=== PATIENT | male | born 2005 | race Caucasian/White ===

== ENCOUNTER 2024-09-10 10:57 | Emergency (ER) | payer BC, SELFPAY ==
[2024-09-10 11:17] VITALS: BP 131/77
--- NOTE | 2024-09-10 11:21 | ED.GENMED ---
ED Provider Triage
-
Patient seen by provider in Triage?: Seen in Triage
Attestation: A medical screening examination has been initiated by a qualified medical provider. Based on the assessment performed at this time, it has been determined that an emergent medical condition may exist and the patient has been informed
that further medical evaluation and possible additional diagnostic testing may be needed.
HPI: This is a medical evaluation conducted in person to initiate diagnostic evaluation and provide initial therapeutics. Please see further documentation by the treating clinician. 19yoM here after a head injury. Got out of bed too quickly
yesterday and passed out. Hit his head. C/o nausea, dizziness, headache. Headache is currently a 4/10 in severity. Wants to get checked for a concussion. Does not feel he needs to be here but parents wanted him to get checked.
GENERAL: Alert , in no apparent distress
EYE: No visual abnormalities.
NECK: Trachea midline
ENT: No visible abnormalities.
LUNGS: No acute respiratory distress
NEUROLOGICAL: Alert and oriented. PERRL. Ambulating with a steady gait.
SKIN: Skin intact. No visible changes.
MUSCULOSKELETAL: Moving extremities normally
PSYCH: Normal and appropriate interaction.
EKG ordered. Patient does not want blood work and does not feel he needs a CT.
History of Present Illness
General
Chief Complaint: Head Injury
Time Seen by Provider: 09/10/24 12:36
History of Present Illness
History of Present Illness:
See triage documentation.
Phy Exam
Physical Exam
Physical Exam:
See triage documentation.
Course
Orders/Labs/Results
Orders:
Orders
09/10/24 11:27
Electrocardiogram (*1) Urgent
Reason for Study: Syncope
EKG- Treatment ONCE
Vital Signs
Initial and Last Documented VS:
Initial Vital Signs
Temp Pulse Resp BP Pulse Ox
98.7 F 102 16 131/77 97
09/10/24 11:17 09/10/24 11:17 09/10/24 11:17 09/10/24 11:17 09/10/24 11:17
Last Documented Vital Signs
Temp Pulse Resp BP Pulse Ox
98.7 F 102 16 131/77 97
09/10/24 11:17 09/10/24 11:17 09/10/24 11:17 09/10/24 11:17 09/10/24 11:17
*EKG
Interpreted by ED Provider?: Yes
EKG Intrepretation Date: 09/10/24
Heart Rate: 101
Rate: tachycardiac
Rhythm: sinus
[place]: normal axis
Interval: normal interval
QRS Pattern: right bundle branch block (incomplete)
Ischemia: no ischemia
*Critical Care Note
Total Time (30-74mins, 75-104mins- exclusive of procedures): Not Applicable
Update Note
Update Note:
Patient left after triage assessment.
ED Attending Note
-
Portions of this chart may have been created with voice recognition software.� Occasional wrong word or��sound alike� substitutions may have occurred due to the inherent limitations of voice recognition software.
Discharge Plan
Departure
Patient Disposition: Left Without Treatment
Referrals:
NONE,* [Family Provider] -
Interventions
Interventions:
*Risk Screen - Suicide Last Done: 09/10/24 11:17
*General Assessment Last Done: 09/10/24 11:17
*Neglect/Abuse Screening Last Done: 09/10/24 12:15
*ED- Fall Risk Assessment Last Done: 09/10/24 12:15
*ED COVID-19 Vaccine History Last Done: 09/10/24 11:17
ED- Neurological Assessment Last Done: 09/10/24 12:15
Discharge Date and Time
Discharge Date/Time: 09/10/24 12:44
Print Language: ICELANDIC
== END 2024-09-10 12:44 | disposition left against medical advice (07) ==
LOC: EMR 10:57
PROVIDERS: EMERGENCY PHYSICIAN Emergency Medicine
DX: S09.90XA Unspecified injury of head, initial encounter (principal); W19.XXXA Unspecified fall, initial encounter
CPT/HCPCS: 99283; 93005